=== PATIENT | male | born 2005 | race Two or more races ===

== ENCOUNTER 2025-05-02 18:14 | Emergency (ER) | payer OTHER, SELFPAY ==
[2025-05-02 19:40] LABS: Glucose, Urine (Dipstick) Normal (Negative); Leukocyte 500 (Negative); Protein, Urine (Dipstick) 30 mg/dl (Neg-Trace); Specific Gravity, Urine 1.020 (1.005-1.030)
[2025-05-02] MEDS ORDERED: cefTRIAXone (ROCEPHIN) 500 MG VIAL ONE (19:41)
[2025-05-02 19:59] LABS: CAUTI Indications for Culture Pelvic or flank pain; RBC/HPF 0-3 HPF (0-3); WBC/HPF Greater Than 50 HPF (0-3)
[2025-05-02 20:00] LABS: Bacteria/HPF None Seen HPF (None Seen); Mucous/LPF 2+ LPF (<2+); Urine Culture Reflex Yes Yes
[2025-05-03 14:27] LABS: Chlam.trachomatis by PCR,Urine Not Detected (NotDetected); GC N.gonorrhoeae PCR,UrineVOID DETECTED (NotDetected)
== END 2025-05-02 19:57 | disposition home or self-care (01) ==
LOC: CSHERS 18:14
DX: N34.1 Nonspecific urethritis (principal); F17.210 Nicotine dependence, cigarettes, uncomplicated; F17.290 Nicotine dependence, other tobacco product, uncomplicated; Z55.6 Problems related to health literacy
CPT/HCPCS: 81001; 87086; 87491; 87591; 96372; 99283; J0696